=== PATIENT | male | born 1960 | race Hispanic/Latino ===

== ENCOUNTER 2020-03-14 21:50 | Emergency (ER) | payer OTHER ==
--- OUTSIDE RECORDS SUMMARY | 2020-03-14 21:53 | XMS REPORT | Clinical Summary ---
:1960 Author Organization [facility] Address [address] [place] [address] Care Team Providers Name Role Phone Leodan Smith MD Primary Care Provider Allergies No Known Allergies Medications Medication Sig Dispensed Refills Start Date End Date Status losartan (COZAAR) 50 MG Take 50 mg by 0 Active tablet mouth daily. Active Problems Problem Noted Date Dizziness 05/15/2017 Family History Medical History Relation Name Comments Cancer Brother Heart disease Brother Cancer Mother Diabetes Mother Diabetes Sister Relation Name Status Comments Brother Mother Sister Social History Tobacco Use Types Packs/Day Years Used Date Never Smoker Alcohol Use Drinks/Week oz/Week Comments Yes Occassional Sex Assigned at Date Recorded Not on file Job Start Date Occupation Industry Not on file Not on file Not on file Travel History Travel Start Travel End No recent travel history available. Last Filed Vital Signs Not on file Plan of Treatment Health Maintenance Due Date Last Done Comments COLONOSCOPY SCREENING 2011 SHINGLES VACCINES (#1) 2011 INFLUENZA VACCINE 05/03/2020 Results Not on fileafter 03/14/2019 Advance Directives For more information, please contact: [phone] Type Date Recorded Patient Electrolysis Investigator Explanati on Advance Directives, Living Will 05/15/2017 12:06 AM and Medical Power of [place]
[2020-03-14 22:18] LABS: Basophils % 0.5 % (0-1.3); Hematocrit 36.8 % (39.6-49.0); Lymphocytes % 5.6 % (15.3-44.8); MPV 7.9 fL (7.6-11.3); RBC Red Blood Cell Count 4.18 M/uL (4.33-5.43)
[2020-03-14] MEDS ORDERED: KETOROLAC 30 MG/ML INJ ONE (22:19)
[2020-03-14 22:20] LABS: Urine Bilirubin NEGATIVE (NEG); Urine Blood NEGATIVE (NEG); Urine Color YELLOW; Urine Glucose NEGATIVE (NEG); Urine Protein NEGATIVE (NEG); Urine Specific Gravity >=1.030 (1.005-1.030); Urine Urobilinogen 0.2 mg/dL (0.2-1.0)
[2020-03-14] MEDS ORDERED: NA CHLORIDE 0.9% 1,000 ML ONE (22:20)
[2020-03-14 22:31] LABS: Urine Microscopic Reflex ORDER UMIC
[2020-03-14 22:33] LABS: Urine Appearance CLOUDY
[2020-03-14 22:42] LABS: Albumin 3.9 g/dL (3.4-5.0); Bilirubin Direct 0.1 mg/dL (0-0.2); Bilirubin Total 0.5 mg/dL (0.2-1.0); Potassium 3.9 mmol/L (3.5-5.1); Protein, Total 7.3 g/dL (6.4-8.2)
[2020-03-14 22:45] LABS: Urine Amorphous Sediment 3+ /HPF (NONE SEEN); Urine Bacteria >50 /HPF (NONE SEEN); Urine Culture Reflex Order REFLEXED; Urine Mucus 1+ /HPF (NONE SEEN); Urine RBC NONE SEEN /HPF (NONE SEEN)
[2020-03-15] MEDS ORDERED: NA CHLORIDE 0.9% 1,000 ML ONE (00:13)
--- NOTE | 2020-03-15 01:27 | ER ---
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 Reports nausea. Denies vomiting. Reports difficulty urinating. Coronavirus screen: Proceed with normal triage. Patient denies a cough. Patient denies shortness of breath or difficulty breathing. Patient denies measured and/or subjective temperature greater than 100.4F prior to today's visit. Patient denies travel on a cruise ship or to a country the [facility] currently lists as an affected area. Patient denies contact with known and/or suspected case of COVID-19. Ebola Screen: Patient negative for fever greater than or equal to 101.5 degrees Fahrenheit, and additional compatible Ebola Virus Disease symptoms Patient denies exposure to infectious person. Patient denies travel to an Ebola-affected area in the 21 days before illness onset. No symptoms or risks identified at this time. Initial Sepsis Screen: Does the patient meet any 2 criteria? No. Patient's initial sepsis screen is negative. Does the patient have a suspected source of infection? No. Patient's initial sepsis screen is negative. Risk Assessment: Do you want to hurt yourself or someone else? Patient reports no desire to harm self or others. Onset of symptoms was March 14, 2020. 21:56 Method Of Arrival: Ambulatory ca1 21:56 Acuity: CRISTAL 3 ca1 Historical: - Allergies: 21:53 No Known Allergies; sg - PMHx: 21:53 Hypertension; sg - PSHx: 21:53 Appendectomy; sg - Immunization history:: Adult Immunizations up to date. - Social history:: Smoking status: Patient denies any tobacco usage or history of. Screenin:25 Abuse screen: Denies threats or abuse. Denies injuries from another. Nutritional rv screening: No deficits noted. Tuberculosis screening: No symptoms or risk factors identified. Fall Risk None identified. Assessment: 22:24 General: Appears uncomfortable, Behavior is calm, cooperative. Pain: Complains of pain rv in right low back Pain radiates to RIGHT SIDE. Neuro: Level of Consciousness is awake, alert, obeys commands, Oriented to person, place, time, situation. Cardiovascular: Patient's skin is warm and dry. Respiratory: Airway is patent. Derm: Skin is intact. 22:24 : Reports burning with urination, since 1400. rv 23:45 Reassessment: Patient and/or family updated on plan of care and expected duration. Pain rv level reassessed. Patient is alert, oriented x 3, equal unlabored respirations, skin warm/dry/pink. RADIOLOGIST TALKED TO DR BELLO THRU PHONE FOR POSSIBLE ANEURYSM SEEN IN THE CT SCAN. PATIENT UNDERWENT CT SCAN WITH CONTRAST TO CONFIRM. PATIENT UPDATED ON THE TEST RESULTS AND APPEARS TO BE ANXIOUS. 03/15 00:24 Reassessment: PATIENT AND DAUGHTER ON THE PHONE, UPDATED BY DR BELLO REGARDING THE CT rv SCAN REPORT AND THE PLAN OF CARE. Vital Signs: 03/14 21:56 BP 162 / 87; Pulse 89; Resp 15 S; Temp 97.6(O); Pulse Ox 100% on R/A; Weight 86.18 kg ca1 (R); Height 5 ft. 4 in. (162.56 cm) (R); Pain 5/10; 23:00 BP 153 / 81; Pulse 71; Resp 17; Pulse Ox 100% on R/A; rv 23:30 BP 143 / 81; Pulse 129; Resp 18; Pulse Ox 100% on R/A; rv 23:48 BP 135 / 71; Pulse 124; Resp 20; Pulse Ox 99% on R/A; rv 03/15 00:15 BP 142 / 77; Pulse 123; Resp 15; Pulse Ox 99% on R/A; rv 01:12 BP 122 / 87; Pulse 112; Resp 15; Pulse Ox 97% on R/A; rv 01:50 BP 140 / 81; Pulse 104; Resp 15; Temp 98; Pulse Ox 98% on R/A; rv 03/14 21:56 Body Mass Index 32.61 (86.18 kg, 162.56 cm) ca1 ED Course: 03/14 21:52 Patient arrived in ED. ds1 21:54 Arm band placed on. sg 21:58 Triage completed. ca1 21:59 Ochoa Bello MD is Attending Physician. tw4 22:10 Inserted saline lock: 20 gauge in right forearm, using aseptic technique. Blood rv collected. 22:10 No provider procedures requiring assistance completed. Initial lab(s) drawn, by az, rv sent to lab. Urine collected: clean catch specimen, clear. 22:20 Ivan Blank RN is Primary Nurse. rv 22:25 Patient has correct armband on for positive identification. Pulse ox on. NIBP on. rv 22:27 CT Stone Protocol In Process Unspecified. EDMS 23:24 CT Abdomen - Angio In Process Unspecified. EDMS 23:46 EKG done, by ED staff, reviewed by Ochoa Bello MD. rv 03/15 01:51 IV is patent, with fluids infusing freely, with good blood return, Patient transferred, rv IV remains in place. Administered Medications: 03/14 22:23 Drug: TORadol 30 mg Route: IVP; Site: right forearm; rv 23:00 Follow up: Response: No adverse reaction; Marked relief of symptoms; Pain is decreased rv 22:23 Drug: NS 0.9% 1000 ml Route: IV; Rate: 1 bolus; Site: right forearm; rv 03/15 01:00 Follow up: IV Status: Completed infusion; IV Intake: 1000ml rv 00:09 Drug: NS 0.9% 1000 ml Route: IV; Rate: 1 bolus; Site: right forearm; rv 01:52 Follow up: IV Status: Completed infusion; IV Intake: 1000ml rv Intake: 01:00 IV: 1000ml; Total: 1000ml. rv 01:52 IV: 1000ml; Total: 2000ml. rv Outcome: 01:27 ER care complete, transfer ordered by . tw4 01:51 Transferred by ground EMS to [facility], Transfer form completed. rv X-rays sent w/ patient. Note: REPORT GIVEN TO JENNI BRYANT RN 01:51 Condition: good 01:51 Discharge instructions given to patient, Instructed on the need for transfer. 01:57 Transferred Note: EMS contacted spoke with Keith for a unit to transfer pt to [facility], EMS in route to facility for patient transfer at this time 02:35 Patient left the ED. rv Signatures: Dispatcher [employer] EDGatito Mccracken, STACI RN sg Poly Wilkins ds1 Ochoa Bello MD MD tw4 Ivan Blank, RN RN rv AcSandra vanegas RN RN ca1
--- NOTE | 2020-03-15 01:27 | EDPHYS ---
Physician Documentation [facility] Name: Medardo Fowler Age: 60 yrs Sex: Male : 1960 Arrival Date: 03/14/2020 Time: 21:52 Bed 6 Private MD: ED Physician Ochoa Salvador HPI: 03/14 22:24 This 60 yrs old Male presents to ER via Ambulatory with complaints of Back tw4 Pain, Side Pain. 22:24 The patient presents with pain that is acute. The symptoms are located in the right mid tw4 back. Onset: The symptoms/episode began/occurred this morning. The pain does not radiate. Associated signs and symptoms: The patient has no apparent associated signs or symptoms. The problem was sustained from unknown cause. Modifying factors: The patient symptoms are alleviated by nothing, the patient symptoms are aggravated by. Severity of symptoms: At their worst the symptoms were moderate, in the emergency department the symptoms are unchanged. The patient has not experienced similar symptoms in the past. Historical: - Allergies: 21:53 No Known Allergies; sg - PMHx: 21:53 Hypertension; sg - PSHx: 21:53 Appendectomy; sg - Immunization history:: Adult Immunizations up to date. - Social history:: Smoking status: Patient denies any tobacco usage or history of. ROS: 22:24 Constitutional: Negative for fever, chills, and weight loss, Eyes: Negative for injury, tw4 pain, redness, and discharge, Cardiovascular: Negative for chest pain, palpitations, and edema, Respiratory: Negative for shortness of breath, cough, wheezing, and pleuritic chest pain, Abdomen/GI: Negative for abdominal pain, nausea, vomiting, diarrhea, and constipation, MS/Extremity: Negative for injury and deformity, Skin: Negative for injury, rash, and discoloration, Neuro: Negative for headache, weakness, numbness, tingling, and seizure. 22:24 Back: Positive for flank pain. Exam: 22:27 Constitutional: This is a well developed, well nourished patient who is awake, alert, tw4 and in no acute distress. Head/Face: Normocephalic, atraumatic. Chest/axilla: Normal chest wall appearance and motion. Nontender with no deformity. No lesions are appreciated. Cardiovascular: Regular rate and rhythm with a normal S1 and S2. No gallops, murmurs, or rubs. Normal PMI, no JVD. No pulse deficits. Respiratory: Lungs have equal breath sounds bilaterally, clear to auscultation and percussion. No rales, rhonchi or wheezes noted. No increased work of breathing, no retractions or nasal flaring. Abdomen/GI: Soft, non-tender, with normal bowel sounds. No distension or tympany. No guarding or rebound. No evidence of tenderness throughout. 22:27 Skin: Warm, dry with normal turgor. Normal color with no rashes, no lesions, and no evidence of cellulitis. MS/ Extremity: Pulses equal, no cyanosis. Neurovascular intact. Full, normal range of motion. Neuro: Awake and alert, GCS 15, oriented to person, place, time, and situation. Cranial nerves II-XII grossly intact. Motor strength 5/5 in all extremities. Sensory grossly intact. Cerebellar exam normal. Normal gait. 22:27 Back: pain, that is mild, ROM is normal, CVA tenderness, is noted on the right. Vital Signs: 21:56 BP 162 / 87; Pulse 89; Resp 15 S; Temp 97.6(O); Pulse Ox 100% on R/A; Weight 86.18 kg ca1 (R); Height 5 ft. 4 in. (162.56 cm) (R); Pain 5/10; 23:00 BP 153 / 81; Pulse 71; Resp 17; Pulse Ox 100% on R/A; rv 23:30 BP 143 / 81; Pulse 129; Resp 18; Pulse Ox 100% on R/A; rv 23:48 BP 135 / 71; Pulse 124; Resp 20; Pulse Ox 99% on R/A; rv 03/15 00:15 BP 142 / 77; Pulse 123; Resp 15; Pulse Ox 99% on R/A; rv 01:12 BP 122 / 87; Pulse 112; Resp 15; Pulse Ox 97% on R/A; rv 01:50 BP 140 / 81; Pulse 104; Resp 15; Temp 98; Pulse Ox 98% on R/A; rv 03/14 21:56 Body Mass Index 32.61 (86.18 kg, 162.56 cm) ca1 MDM: 03/14 22:00 Patient medically screened. tw4 03/15 01:28 Differential diagnosis: Abdominal Aortic Aneurysm Fracture Leaking Aortic Aneurysm tw4 Metastatic Disease Pancreatic Carcinoma spinal injury, Ureterolithiasis. Data reviewed: vital signs, nurses notes. Data reviewed: lab test result(s), CBC, electrolytes, radiologic studies, CT scan. Data interpreted: Pulse oximetry: Interpretation: normal. Counseling: I had a detailed discussion with the patient and/or guardian regarding: the historical points, exam findings, and any diagnostic results supporting the discharge/admit diagnosis. Special discussion: I discussed with the patient/guardian in detail that at this point there is no indication for admission to the hospital. It is understood, however, that if the symptoms persist or worsen the patient needs to return immediately for re-evaluation. 03/14 22:00 Order name: Basic Metabolic Panel; Complete Time: 22:55 [facility] 03/14 22:55 Interpretation: Normal except: GLUC 159; GFR 76; NA 134. [facility] 03/14 22:00 Order name: CBC with Diff; Complete Time: 22:55 [facility] 03/14 22:55 Interpretation: Normal except: WBC 18.5; RBC 4.18; HCT 36.8; HGB 12.4. [facility] 03/14 22:00 Order name: Hepatic Function; Complete Time: 22:55 [facility] 03/14 22:55 Interpretation: Within normal limits. [facility] 03/14 22:00 Order name: Lipase; Complete Time: 22:55 [facility] 03/14 22:55 Interpretation: Within normal limits: LIP 75. [facility] 03/14 22:00 Order name: Urinalysis; Complete Time: 22:55 [facility] 03/14 22:37 Order name: Urine Microscopic Only; Complete Time: 22:55 [facility] 03/14 22:55 Interpretation: Normal except: UBACT >50; AMORPH 3+. [facility] 03/14 22:00 Order name: IV Saline Lock; Complete Time: 22:23 [facility] 03/14 22:02 Order name: CT Stone Protocol [facility] 03/14 22:47 Order name: Urine Culture [facility] 03/14 22:55 Order name: CT Abdomen - Angio [facility] 03/14 22:59 Order name: Type And Screen; Complete Time: 01:14 03/14 22:00 Order name: Labs collected and sent; Complete Time: 22:23 4 Administered Medications: 03/14 22:23 Drug: TORadol 30 mg Route: IVP; Site: right forearm; rv 23:00 Follow up: Response: No adverse reaction; Marked relief of symptoms; Pain is decreased rv 22:23 Drug: NS 0.9% 1000 ml Route: IV; Rate: 1 bolus; Site: right forearm; rv 03/15 01:00 Follow up: IV Status: Completed infusion; IV Intake: 1000ml rv 00:09 Drug: NS 0.9% 1000 ml Route: IV; Rate: 1 bolus; Site: right forearm; rv 01:52 Follow up: IV Status: Completed infusion; IV Intake: 1000ml rv Disposition: 03/15/20 01:27 Transfer ordered to [facility]. 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 - Reason for transfer: Higher level of care. - Accepting physician is Dr Denise. - Condition is Stable. - Problem is new. - Symptoms have improved. Signatures: Dispatcher [employer] EDGatito Mccracken RN RN Ochoa Salvador MD MD tw4 Ivan Blank RN RN rv Corrections: (The following items were deleted from the chart) 02:35 01:27 03/15/2020 01:27 Transfer ordered to [facility]. 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 Reason for transfer: Higher level of care. Accepting physician is Dr Denise. Condition is Stable. Problem is new. Symptoms have improved. tw4
[2020-03-15 02:48] VITALS: BP 135/71; O2SAT 99
[2020-03-15 02:52] VITALS: TEMP 98
--- NOTE | 2020-03-17 09:53 | RAD REPORT ---
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 Patient complains of lower back pain towards right flank with nausea and difficulty urinating TECHNIQUE: Following the administration of intravenous contrast, multiple high-resolution axial imag es of the abdomen and pelvis were performed followed by sagittal and coronal reconstructed images. KS P images are not performed.The CT study is performed according to ALARA (as low as reasonably achieva ble) or ALARA/IMAGE GENTLY, with automatic adjustment of mA and/or kV according to patient size. Performed on: 03/14/2020 at 11:06 PM COMPARISON: CT abdomen and pelvis without IV contrast performed on 03/14/2020 at 10:[address] abdo men and pelvis performed on 02/03/2017 FINDINGS: CTA ABDOMEN AND PELVIS: Liver: The liver is normal in size and configuration. No focal hepatic abnormalities are identified. Liver attenuation is within normal limits. Spleen: The spleen is normal is size, configuration and attenuation. Gallbladder and bile duct: The gallbladder is well distended and unremarkable. There is no biliary ductal dilatation. Pancreas: The pancreas is grossly normal in size and configuration. Adrenal Glands: The adrenal glands are normal in size and configuration. Kidneys: The kidneys are normal in size and configuration. There is no evidence of hydronephrosis. Th ere is a small ringlike calcification within the cortex of the midpole of the right kidney which appe ars to be associated with a poorly defined low density mass lesion measuring approximately 2.0 x 1.7 x 2.1 cm. A complex cystic mass or solid renal mass are not excluded. There is an exophytic, benign-a ppearing 3.2 x 2.5 cm cyst arising from the lower pole of the right kidney. There is a large, nonenha ncing soft tissue mass within the retroperitoneum to the right of the abdominal aorta measuring appro ximately 5.1 x 4.9 cm in cross-sectional diameter by approximately 4.8 cm in craniocaudal dimension w ith extensive surrounding soft tissue stranding and thickening within the right posterior pararenal s pace and extending caudally along the right iliopsoas muscle. This soft tissue mass posteriorly displ aces the inferior vena cava. The etiology of this is not certain. An underlying hemorrhagic soft tiss ue mass is not excluded. There is no evidence to suggest active arterial bleeding at this time. Stomach: The stomach is grossly normal. There is no definite hiatal hernia. Bowel: The bowel gas pattern is non specific and non obstructive. There is scattered colonic divertic ulosis. Appendix: The appendix appears to be surgically absent. Free air: There is no evidence of free air. Free fluid: There is no evidence of free fluid. Vasculature: The aorta is normal in caliber and contour. The celiac artery and superior mesenteric ar maria e are patent and are unremarkable. The inferior mesenteric artery is patent and is also within nor mal limits. There are single renal arteries bilaterally which are widely patent and are within normal limits. The common iliac arteries are normal in caliber and contour and are patent. There is no evid ence of abdominal aortic aneurysm or aortic dissection. The inferior vena cava is patent and is compr essed by a large hemorrhagic soft tissue mass in the retroperitoneal space. The common iliac veins ar e patent and are normal in caliber and contour. Lymphadenopathy: There is an approximately 2.5 x 1.5 x 1.5 cm right para-aortic lymph node Bladder: The bladder is well distended and smooth in contour. Reproductive: The prostate gland is mildly prominent. Bones: No acute osseous abnormalities are identified. Soft tissues: No acute soft tissue abnormalities are identified. There are small bilateral fat-contai yvan inguinal hernias. IMPRESSION: 1. Large, nonenhancing soft tissue mass within the retroperitoneum to the right of the a bdominal aorta measuring approximately 5.1 cm in greatest dimension with extensive surrounding soft t issue stranding and thickening within the right posterior pararenal space and extending caudally daja g the iliopsoas muscle. This soft tissue mass compresses and posteriorly displaces the inferior vena cava. An underlying hemorrhagic soft tissue mass is not excluded. There is no evidence to suggest act anderson arterial bleeding at this time. 2 . Approximately 2.5 x 1.5 x 1.5 cm right para-aortic lymph node just superior to the hemorrhagic so ft tissue mass in the retroperitoneal space. 3. Coarse ringlike calcification within the cortex of the midpole of the right kidney with associated findings suspicious for an underlying right renal mass lesion measuring approximately 2.1 cm in grea test dimension. Although this could represent a complex cyst, a solid renal mass lesion is not entire ly excluded. 4. Exophytic 3.2 cm benign-appearing cyst arising from the lower pole of the right kidney. 5. Normal CTA of the abdomen. 6. Scattered colonic diverticulosis. These critical findings were discussed with Dr. Salvador on 03/15/2020 at 12:04 AM central time. Electronically signed by: Maura Sheikh DO 03/15/2020 12:04 AM CDT Due to temporary technical issues with the PACS/Fluency reporting system, reports are being signed by the in house radiologist without review as a courtesy to ensure prompt reporting. The interpreting r adiologist is fully responsible for the content of the report.
--- NOTE | 2020-03-17 09:56 | RAD REPORT ---
EXAM DESCRIPTION: CT - Stone Protocol - 03/15/2020 5:43 am CLINICAL HISTORY: FLANK PAIN COMPARISON: 02/03/2017 TECHNIQUE: CT of the abdomen and pelvis without IV contrast. Evaluation of the solid organs and vasc ulature is suboptimal due to lack of IV contrast. FINDINGS: Lung Bases: The visualized lung bases are clear. Bones: Degenerative change of the spine. Abdomen: Liver: The liver has normal size and density. Gallbladder: No calcified gallstones. Spleen, Pancreas, and Adrenal Glands: The spleen, pancreas, and adrenal glands are unremarkable. Kidneys: The kidneys have normal size without evidence of hydronephrosis. No obstructing ureteral magno culi. Course right renal cortical calcification is stable. Vasculature: There is a hyperdense structure in the retroperitoneum adjacent to the IVC and aorta chey suring 5.7 x 4.4 x 5.2 cm with adjacent fat stranding and small amount of free retroperitoneal hemorr tre extending into the right pelvis. This structure may compress or involve the IVC. There is also m ass effect on the abdominal aorta with normal left with displacement. Aortoiliac atherosclerosis. The re is a second well rounded structure in the right periaortic region measuring 1.5 cm which may repre sent a lymph node. Stomach: The stomach and duodenum have normal course. Other: No free intraperitoneal air. No free fluid or lymphadenopathy. Pelvis: Bladder: Urinary bladder is unremarkable. Bowel: No dilated loops of large or small bowel. Scattered diverticula of the colon. Appendix: Identified. Pelvis: Prostate is not enlarged. Small left fat-containing hernia. IMPRESSION: 1. Well-circumscribed 5.7 cm hyperdense structure in the right para-aortic region with a djacent fat stranding and small free retroperitoneal hemorrhage. Differential considerations include saccular rupturing abdominal aortic aneurysm, contained vascular injury or aneurysm arising from a ve ssel rather than the aorta, or hemorrhagic mass in the right para-aortic region. Urgent CTA of the ab domen recommended for more complete characterization. If the patient has clinical symptoms of acute a ortic rupture including worsening pain, severe hypotension and anemia urgent vascular surgery consult ation is also recommended. THIS REPORT CONTAINS FINDINGS THAT MAY BE CRITICAL TO PATIENT CARE: The findings were verbally discu ssed via telephone conference with Dr. Ochoa Salvador by Dr. Kirill Ponce on 03/14/2020 10:56 PM CDT. The results were acknowledged and understood. This exam was performed according to our departmental dose-optimization program, which includes autom ated exposure control, adjustment of the mA and/or kV according to patient size and/or use of iterati ve reconstruction technique. Electronically signed by: Kirill Ponce 03/14/2020 11:00 PM CDT Due to temporary technical issues with the PACS/Fluency reporting system, reports are being signed by the in house radiologist without review as a courtesy to ensure prompt reporting. The interpreting r adiologist is fully responsible for the content of the report.
== END 2020-03-15 02:35 | disposition short-term general hospital (02) ==
LOC: ER 21:50
DX: K66.1 Hemoperitoneum (principal); D41.00 Neoplasm of uncertain behavior of unspecified kidney; R19.07 Generalized intra-abdominal and pelvic swelling, mass and lump; I10 Essential (primary) hypertension
CPT/HCPCS: 96361; 93005; 87088; 85025; 80048; 36415; 86900; 86850; 86901; 80076; 83690; 76377; 74175; 74176; 96374; 99285; Q9967; J7030 ×2; 81003; 81015; 87086